=== PATIENT | female | born 1980 | race African-American/Black ===

== ENCOUNTER → 2017-02-01 | Outpatient (CLI) | payer OTHER ==
[~2017-02-01] MED LIST: FERR1TAB23 PO; IBUP-1450 PO; MOME100A INH; MULT1TAB22 PO; ULT50X PO
[2017-02-01 12:02] LABS: HEMATOCRIT 32.8 % (37-47); MEAN CELL VOLUME 93.7 fL (80-100); MEAN CORPUSCULAR HEMOGLOBIN 31.1 pg (25-34); MEAN CORPUSCULAR HGB CONC 33.2 g/dl (32-36); MEAN PLATELET VOLUME 9.8 fL (7.4-10.4); PLATELET COUNT 248 K/uL (130-400); WHITE BLOOD COUNT 4.22 K/uL (4.8-10.8)
[2017-02-01 12:12] LABS: PARTIAL THROMBOPLASTIN RATIO 1.1; PROTHROMBIN TIME (PATIENT) 10.3 SECONDS (9.0-12.0)
[2017-02-08 17:27] LABS: APTT 27 sec (22-34); F8 ACT 173 % (50-180); RISTOCETIN COFACTOR** 4459X 110 % (42-200)
== END | disposition home or self-care (01) ==
LOC: C.LAB 11:35
PROVIDERS: ATTEND Obstetrics & Gynecology
DX: N92.0 Excessive and frequent menstruation with regular cycle (principal)

== ENCOUNTER 2017-02-04 10:04 | Inpatient (IN) | payer OTHER ==
[~2017-02-04] VITALS: Ht 167.6 cm; Wt 46.4 kg
[~2017-02-04 10:04] MED LIST changes: -FERR1TAB23 PO; -IBUP-1450 PO; -MULT1TAB22 PO; -ULT50X PO
[2017-02-04 10:26] VITALS: BP 108/69; PULSE 66; TEMP 36.4; O2SAT 100; Ht 167.6 cm; Wt 46.4 kg
[2017-02-04] MEDS ORDERED: ONDANSETRON INJ 2 MG/ML 2 ML VIAL IV PRN (10:45)
[2017-02-04] MEDS ORDERED: ACETAMINOPHEN 325 MG TAB PO PRN (10:45)
--- NOTE | 2017-02-04 14:14 | Progress Note ---
Progress Note Date of Service February 04, 2017. Progress Note Pt. direct admitted with spontaneous right pneumothorax. As this is second occurrence, surgical bleb stapling recommended, and offered to patient for today. Pt. refused to undergo surgery or other treatments (chest tube, observation in hospital with oxygen). Dr. Mccray discussed possible consequences of no treatment which include but are not limited to worsening SOB or respiratory status, chest pain, tension pneumothorax resulting in syncope or . Despite the risks previously noted, she signed out AMA. Pt. informed that it was the medical opinion of Dr. Mccray she was not safe to drive (given the possible consequences noted above) and she expressed her understanding, even stating that her bull driver told her she should not drive. Given this fact, an appropriate Initial Reporting form was faxed to the [place] Department [employer] indicating that pt. should cease driving immediately. Pt. was notified that the above form was sent. The above was discussed with Risk Management Department.
--- NOTE | 2017-02-04 15:40 | HISTORY & PHYSICAL EXAMINATION ---
DATE OF ADMISSION: 02/04/2017 ADMISSION NOTE REASON FOR ADMISSION: Recurrent spontaneous right pneumothorax. HISTORY OF PRESENT ILLNESS: This is a 36-year-old female who has a history of a right spontaneous pneumothorax in 2012. She was evaluated by Dr. Luna as well as Dr. Agustín Montgomery in the past. She does have apical blebs bilaterally. The patient has an interesting history and she states that last July, she was flying on an airplane and her right-sided chest pain and shortness of breath became so severe she thought they may have to do an emergency landing. She did not seek medical attention and eventually over several days, these symptoms resolved. She had been told this was a possibility, especially with flying after she refused an apical bleb resection 4 years ago. The past week, the patient has had a cough which is nonproductive. She has had no fevers. The patient presented to Dr. Cornelius Casanova's office where she was found to have a large right pneumothorax and in fact had some symptoms of a tension pneumothorax. Vital signs are stable. Dr. Casanova called me in the office and asked if I would help in this case. I had her directly admitted to my service. I evaluated after her arrival. She is on room air with adequate saturations when I arrived. PAST MEDICAL HISTORY: 1. Recurrent spontaneous right pneumothoraces. 2. Allergic rhinitis. 3. Abnormal Pap smears. 4. HPV infections. 5. History of varicella. 6. Urinary tract infection. PAST SURGICAL HISTORY: 1. Tooth extractions. MEDICATIONS: 1. Dulera inhaler. 2. ProAir inhaler. ALLERGIES: No known drug allergies. 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 She is originally from [place]. She has never smoked cigarettes. She does have a boyfriend. She has never smoked. She did attend [employer]. FAMILY MEDICAL HISTORY: Significant for sickle cell trait, rheumatoid arthritis, SLE, diabetes mellitus and hypertension. REVIEW OF SYSTEMS: The patient is very thin. She denies weight loss. She denies any fevers or chills. She has had pain on right side of her chest. She states that she had a near syncopal episode, when she was in the shower. She states that she feels a bit better. She has had no GI or symptoms. She has no children. She has had no skin breakdown. She had no visual or auditory symptoms. PHYSICAL EXAMINATION: GENERAL: Very thin female, appears her stated age of 36. She is awake and alert. HEENT: Her extraocular movements are intact. Pupils are equal, round and reactive. Sclerae are anicteric. She has no nasolabial flattening. Teeth are in good repair. Tongue is midline. NECK: She has some neck vein distention at 90 degrees. She has no tracheal deviation. She has markedly decreased breath sounds on the right. She is very thin just over 100 pounds. She has no lymphadenopathy or carotid bruits. HEART: She has a regular rate and rhythm of her heart. LUNGS: She has clear breath sounds on the left. ABDOMEN: Soft, nontender. She has no surgical incisions. EXTREMITIES: She has no peripheral edema or joint effusions. She has excellent peripheral pulses. NEUROLOGIC: She is awake, alert and oriented. ASSESSMENT: Recurrent right pneumothorax which may be under some tension. PLAN: I have kept the patient n.p.o. and she has not eaten. I have offered her a thoracoscopic apical bleb resection. I spent a good deal of time with this patient and I explained to her that I am very concerned. She stated that she "had some things to do" and left. She signed out against medical advice. She did the same thing 4 years ago when she had a pneumothorax. I offered her a chest tube, she stated that she could not be admitted to the hospital at this time. Basically, the patient's main reason for not being admitted is she is "freaking out" over the thought of this surgery. Again, I offered her chest tube, she did not want that. She signed out against medical advice. She states that she has to "process this." I have explained to the patient that she could develop some major problems and in fact could with this pneumothorax. She states that she understands this. She also states that she did not think anything was going to happen to her because it did not happen in the past. She did want to know if she could come back later and have the surgery at a time of her choosing. At any rate, she did sign out against medical advice. BRAULIO
--- NOTE | 2017-02-12 13:08 | DISCHARGE SUMMARY ---
SUMMARY: The patient was admitted with a recurrent spontaneous pneumothorax as a direct admission to my service. She refused lab work. She refused admission and refused operative procedure to address this. She signed out against medical advice. For specifics, please refer to my history and physical.
[2017-02-13] MEDS ORDERED: FERR1TAB23 PO (09:56)
== END 2017-02-04 11:40 | disposition left against medical advice (07) | DRG 201 ==
LOC: C.MSW 10:14
PROVIDERS: ADMIT Surgery; ATTEND Surgery
DX: J93.83 Other pneumothorax (principal); Z83.2 Family history of diseases of the blood and blood-forming organs and certain disorders involving the immune mechanism; Z82.61 Family history of arthritis; Z83.3 Family history of diabetes mellitus; Z82.49 Family history of ischemic heart disease and other diseases of the circulatory system

== ENCOUNTER → 2017-02-04 | Outpatient (CLI) | payer OTHER ==
--- NOTE | 2017-02-04 09:23 | DIAGNOSTIC IMAGING REPORT ---
CHEST 2 VIEWS ROUTINE HISTORY: J93.9 [id number] SOB (shortness of breath)[id number] COMPARISON: Chest 04/27/2015. FINDINGS: Large right pneumothorax with a maximal pleural gap of 4.6 cm. Trace right pleural effusion. The left lung is clear. The heart is normal in size. There may be slight left mediastinal shift and hyperexpansion of the right lung. Therefore, this raises the possibility of a tension pneumothorax. IMPRESSION: Large right pneumothorax and a trace right pleural effusion. There is slight left mediastinal shift and hyperexpansion the right lung concerning for a tension pneumothorax. These findings were discussed with Dr. Casanova at 9:20 AM on 02/04/2017. Electronically signed by: Soham Park M.D. 02/04/2017 9:21 AM Dictated Date/Time: 02/04/2017 9:14 AM
== END | disposition home or self-care (01) ==
LOC: C.RAD1850 09:02
PROVIDERS: ATTEND Internal Medicine Pulmonary Disease
DX: J93.9 Pneumothorax, unspecified (principal); R06.02 Shortness of breath

== ENCOUNTER 2017-03-01 07:38 | Inpatient (IN) | payer OTHER ==
[2017-02-13 09:57] VITALS: BMI 16.0
[~2017-03-01] VITALS: Ht 167.6 cm; Wt 46.4 kg
[2017-03-01] VITALS (10 sets, daily range): BP systolic 93–114; BP diastolic 55–74; PULSE 50–84; TEMP 36.3–36.9; O2SAT 98–100; Ht 167.6 cm; Wt 46.4 kg
[~2017-03-01 07:38] MED LIST changes: +FERR1TAB23 PO; +LACTATED RINGER'S 1000ML 1,000 ML IV SCH
[2017-03-01] MEDS ORDERED: IBUP-1450 PO (08:07)
[2017-03-01] MEDS ORDERED: MULT1TAB22 PO (08:07)
[2017-03-01] MEDS ORDERED: NURSING VERBAL MED ORDER ONE (08:30)
[2017-03-01] MEDS ORDERED: LACTATED RINGER'S 1000ML 500 ML IV SCH (08:45)
[2017-03-01] MEDS ORDERED: FENTANYL CITRATE INJ 50 MCG/1 ML 2 ML VIAL ONE ×2 (08:48→11:26)
[2017-03-01] MEDS ORDERED: DEXAMETHASONE SOD INJ 4 MG/ML VIAL ONE (08:48)
[2017-03-01] MEDS ORDERED: NEOSTIGMINE METHYLSULFATE 5 MG/5 ML SYR ONE (08:48)
[2017-03-01] MEDS ORDERED: PROPOFOL IV EMULSION 10 MG/ML 20 ML VIAL IV ONE (08:48)
[2017-03-01] MEDS ORDERED: ONDANSETRON INJ 2 MG/ML 2 ML VIAL ONE (08:48)
[2017-03-01] MEDS ORDERED: ROCURONIUM BROMIDE 10 MG/ML 5 ML VIAL ONE (08:48)
[2017-03-01] MEDS ORDERED: LIDOCAINE HCL 2% 2 ML VIAL (20MG/ML) ONE (08:48)
[2017-03-01] MEDS ORDERED: MIDAZOLAM HCL 1 MG/ML 2ML VIAL ONE ×2 (08:48→11:31)
[2017-03-01] MEDS ORDERED: GLYCOPYRROLATE INJ 0.2 MG/ML VIAL ONE ×2 (08:48→10:46)
--- NOTE | 2017-03-01 09:17 | History & Physical Bridge Note ---
H&P Re-Evaluation Bridge Note: I have examined the patient, reviewed the History & Physical and in the interval since the performance of the History & Physical I have noted the following changes of clinical significance: No changes noted
--- NOTE | 2017-03-01 09:23 | History and Physical ---
History & Physical Date Mar 01, 2017. Chief Complaint Collapsed lung twice History of Present Illness The patient is a 36 year old female with complaints of at least two right spontaneous pneumothoraces. Past Medical/Surgical History Medical Problems: (1) No pertinent past medical history Additional History Hepatic Disease: No Endocrine Disorder: No Kidney Disease: No Hypertension: No Heart Disease: No Bleeding Tendencies: No Infectious Diseases: No Allergies Coded Allergies: No Known Allergies (Unverified , 03/01/17) Home Medications Scheduled Multiple Vitamins W/ Minerals (One Daily For Women), 1 TAB PO DAILY Scheduled PRN Ibuprofen (Motrin), 600 MG PO Q6H PRN for Pain Mometasone Furoate-Formoterol (Dulera 100/5 Mcg), 2 PUFFS INH Q4H PRN for SOB/ Wheezing Physical Examination Skin: warm/dry, no rash Eyes: normal inspection, EOMI, sclerae normal ENT: normal ENT inspection, pharynx normal Head: normocephalic, atraumatic Neck: supple, no adenopathy, trachea midline Respiratory/Chest: lungs clear, normal breath sounds, no respiratory distress Cardiovascular: regular rate, rhythm, no edema, no murmur Abdomen / GI: normal bowel sounds, non tender Back: normal inspection Neurologic/Psych: no motor/sensory deficits, alert, normal reflexes, oriented x 3 Diagnosis Recurrent right spontaneous pneumothorax Plan of Treatment Right thoracoscopic bleb resection
[2017-03-01] MEDS ORDERED: BUPIVACAINE LIPOSOME 1/3% 266 MG/20 ML VIAL INFIL ONE (10:01)
[2017-03-01] MEDS ORDERED: SODIUM CHLORIDE 0.9% PF 50 ML VIAL ONE (10:01)
[2017-03-01] MEDS ORDERED: CEFAZOLIN SOD 1 GM VIAL ONE (10:30)
[2017-03-01] MEDS ORDERED: HYDROmorphone INJ 2 MG/ML SYR/VIAL ONE (10:51)
[2017-03-01] MEDS ORDERED: OXYCODONE HCL IR 5 MG TAB (IMMEDIATE RELEASE) PO PRN (11:15)
[2017-03-01] MEDS ORDERED: MoRPHine SULFATE 2 MG/ML CARP IV PRN ×2 (11:15→13:15)
[2017-03-01] MEDS ORDERED: ONDANSETRON INJ 2 MG/ML 2 ML VIAL IV PRN ×2 (11:15→11:30)
[2017-03-01] MEDS ORDERED: PROMETHAZINE HCL INJ 12.5 MG in SODIUM CHLORIDE 0.9% 50ML 50 ML IV PRN (11:30)
[2017-03-01] MEDS ORDERED: HYDROmorphone INJ 1 MG/ML SYR IV PRN (11:30)
[2017-03-01] MEDS ORDERED: FLUMAZENIL 0.1 MG/1 ML 10 ML VIAL IV PRN (11:30)
[2017-03-01] MEDS ORDERED: EpHEDrine SULFATE INJ 50 MG/ML AMP IV PRN (11:30)
[2017-03-01] MEDS ORDERED: ATROPINE SULFATE 0.1 MG/ML 5ML SYR IV PRN (11:30)
[2017-03-01] MEDS ORDERED: NALOXONE HCL 0.4 MG/1 ML VIAL/CARP IV PRN (11:30)
--- NOTE | 2017-03-01 12:07 | DIAGNOSTIC IMAGING REPORT ---
CHEST ONE VIEW PORTABLE CLINICAL HISTORY: s/p bleb stapling postoperative change COMPARISON STUDY: 02/04/2017 FINDINGS: Right-sided chest tube in good position. Small residual right apical pneumothorax. Maximum pleural separation 1.5 cm. Persistent prominence of the parenchymal markings in the lung bases. IMPRESSION: Small residual right apical pneumothorax with an estimated pleural separation of 1.5 cm. Electronically signed by: Valdez Sharma M.D. 03/01/2017 12:06 PM Dictated Date/Time: 03/01/2017 12:04 PM
--- NOTE | 2017-03-01 12:28 | Anesthesiology Progress Note ---
Anesthesia Post Op Note Date & Time Mar 01, 2017 at 12:28 Vital Signs Pain Intensity: 0 Vital Signs Past 12 Hours Date Time Temp Pulse Resp B/P (MAP) Pulse Ox O2 Delivery O2 Flow Rate FiO2 03/01/17 12:10 60 16 106/61 100 Oxymask 5 03/01/17 12:00 65 16 113/71 100 Oxymask 10 03/01/17 11:50 75 16 94/56 100 Oxymask 10 03/01/17 11:40 71 12 97/50 100 Oxymask 10 03/01/17 11:33 36.7 82 12 114/49 100 Oxymask 10 03/01/17 08:28 36.9 03/01/17 08:07 84 18 107/65 100 Room Air Notes Mental Status: alert / awake / arousable, participated in evaluation Pt Amnestic to Procedure: Yes Nausea / Vomiting: adequately controlled Pain: adequately controlled Airway Patency, RR, SpO2: stable & adequate BP & HR: stable & adequate Hydration State: stable & adequate Anesthetic Complications: no major complications apparent
[2017-03-01] MEDS: D5W AND 1/2NSS 1,000 ML IV SCH ×2 (13:30→22:40)
--- NOTE | 2017-03-01 14:08 | OPERATIVE REPORT ---
DATE OF OPERATION: 03/01/2017 PREOPERATIVE DIAGNOSIS: Recurrent right spontaneous pneumothorax. POSTOPERATIVE DIAGNOSIS: Same. PROCEDURES: 1. Right thoracoscopy with apical bleb resection. 2. Limited pleurectomy, right upper pleural cavity. SURGEON: Dr. Mccray. AQUATIC LIFE LABORER: NUHA Jones. ANESTHESIA: General anesthesia with single lumen intubation. 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 She was seen to have some small blebs at the apex of her right lung. She is a nonsmoker. We had a long talk about this and elected to proceed with apical bleb resection. She had some anxieties about this case and pushed it off quite a bit. We finally simply scheduled the case and she came in with her today and had a straightforward right thoracoscopy. We did staple off the blebs. We saw no blebs anywhere else and she had no air leak at the conclusion of the case. I did do a limited pleurectomy of the cupula of the right chest cavity. She tolerated it well. We left a 16-Sinhala chest tube in place. PROCEDURE IN DETAIL: The patient was brought to the operating room and laid in supine position. General anesthesia induced and an endotracheal intubation was performed with a single lumen tube. The patient was placed in left lateral decubitus position. After appropriate timeout had been called and she had been prepped and draped in the usual sterile fashion and given prophylactic antibiotics, the patient was hand ventilated very lightly. A 5 mm port was placed just below the tip of the scapula and carbon dioxide was infused. A 5 mm scope was placed. We could see that there were no adhesions. She had good fissures. I closely inspected the superior segment of the right lower lobe and really did not see any evidence of blebs. She did have evidence of bleb in the apex, although it was more scarring. I then made another 5 mm incision with the port at about fourth interspace anterior to the latissimus dorsi muscle. Then about the seventh interspace, we made a 12 mm port for our stapler. This area was grasped at the apex and the Endo-JEANETTE stapler was fired 3 times to remove a generous portion of the right upper lobe. This was taken out in a specimen bag. We then used 266 mg of Exparel and 60 mL of normal saline and blocked from the 2nd to the 11th rib. This intercostal block was done by injecting over the top of the rib intrathoracically under thoracoscopic guidance. Attention was then turned towards the cupula and the pleura was grasped and incised at about the 4th rib and then we removed it, going all the way up to the apex by grasping the edge of the cut pleura with a grasper and then using a Kitner cotton tipped dissector to remove the rest of this. This was delivered off the field. The patient then had a 16-Sinhala chest tube placed in the anterior thoracoscopy port and directed towards the apex. We did not see an air leak. This was sutured in place with heavy silk suture. A 4-0 Monocryl was used to close all the incisions. She tolerated it well. I attest to the content of the Intraoperative Record and any orders documented therein. Any exception s are noted below.
[2017-03-01 14:23] LABS: MEAN CELL VOLUME 92.2 fL (80-100); MEAN CORPUSCULAR HEMOGLOBIN 30.2 pg (25-34); MEAN CORPUSCULAR HGB CONC 32.7 g/dl (32-36); MEAN PLATELET VOLUME 10.3 fL (7.4-10.4); PLATELET COUNT 204 K/uL (130-400); RED BLOOD COUNT 3.58 M/uL (4.2-5.4); WHITE BLOOD COUNT 6.87 K/uL (4.8-10.8)
[2017-03-01 14:29] LABS: PROTHROMBIN TIME (PATIENT) 10.7 SECONDS (9.0-12.0)
[2017-03-01 14:43] LABS: CREATININE 0.68 mg/dl (0.60-1.20)
[2017-03-01] MEDS: KETOROLAC TROMETHAMINE 15 MG/ML VIAL IV. SCH (16:26)
[2017-03-01] MEDS: ACETAMINOPHEN IV 650 MG in EMPTY BAG 0 ML IV SCH (16:26)
[2017-03-01] MEDS: CEFAZOLIN IV 2,000 MG in DEXTROSE 5% 50ML 50 ML IV SCH (18:53)
[2017-03-01] MEDS ORDERED: CEFAZOLIN IV 2,000 MG in DEXTROSE 5% 50ML 100 ML IV SCH (20:00)
[2017-03-01] MEDS: DOCUSATE SODIUM 100 MG CAP PO SCH (21:00)
[2017-03-01] MEDS: METOCLOPRAMIDE HCL INJ 5 MG/ML 2 ML VIAL IV. SCH (21:06)
[2017-03-02] MEDS: KETOROLAC TROMETHAMINE 15 MG/ML VIAL IV. SCH ×2 (00:08→07:57)
[2017-03-02] MEDS: ACETAMINOPHEN IV 650 MG in EMPTY BAG 0 ML IV SCH ×2 (00:08→08:00)
[2017-03-02] MEDS: CEFAZOLIN IV 2,000 MG in DEXTROSE 5% 50ML 50 ML IV SCH (02:06)
[2017-03-02 03:20] VITALS: BP 100/60; PULSE 74; TEMP 36.8; O2SAT 98
[2017-03-02] MEDS: METOCLOPRAMIDE HCL INJ 5 MG/ML 2 ML VIAL IV. SCH (05:57)
[2017-03-02 06:25] VITALS: O2SAT 96
[2017-03-02 07:06] VITALS: BP 95/62; PULSE 76; TEMP 36.9; O2SAT 98
--- NOTE | 2017-03-02 07:30 | DIAGNOSTIC IMAGING REPORT ---
CHEST ONE VIEW PORTABLE CLINICAL HISTORY: s/p bleb stapling postoperative evaluation COMPARISON STUDY: 03/01/2017. FINDINGS: Small right apical pneumothorax moderately diminished in size from the prior study. Maximum pleural separation is 11 mm. The right-sided chest tube has been pulled back several centimeters. Lungs otherwise are clear. IMPRESSION: Improved exam. Very small residual right apical pneumothorax with a pleural separation 11 mm. Lungs otherwise appear clear. Electronically signed by: Valdez Sharma M.D. 03/02/2017 7:28 AM Dictated Date/Time: 03/02/2017 7:27 AM
[2017-03-02] MEDS: DOCUSATE SODIUM 100 MG CAP PO SCH (08:24)
[2017-03-02] MEDS: D5W AND 1/2NSS 1,000 ML IV SCH (08:31)
[2017-03-02] MEDS ORDERED: CEROVITE ADV FORMULA TAB PO SCH (09:00)
[2017-03-02] MEDS ORDERED: ENOXAPARIN 30 MG/0.3 ML SYR SQ SCH (09:00)
[2017-03-02] MEDS ORDERED: ULT50X PO (09:41)
--- NOTE | 2017-03-02 09:45 | DIAGNOSTIC IMAGING REPORT ---
CHEST ONE VIEW PORTABLE CLINICAL HISTORY: s/p chest tube removal tube removal COMPARISON STUDY: 03/02/2017 FINDINGS: Interval removal of the right-sided chest tube. Small residual right apical pneumothorax unchanged. Lungs otherwise remain clear. IMPRESSION: Interval removal of the right-sided chest tube. Unchanged tiny right apical pneumothorax. Electronically signed by: Valdez Sharma M.D. 03/02/2017 9:44 AM Dictated Date/Time: 03/02/2017 9:43 AM
--- NOTE | 2017-03-02 09:45 | Discharge Instructions ---
Discharge Instructions Date of Service Mar 02, 2017. Admission Reason for Admission: PneumothoraxPt Is To Sign Financial Waiver Discharge Discharge Diagnosis / Problem: spontaneous pneumothorax Discharge Goals Goal(s): Decrease discomfort Activity Recommendations Activity Limitations: as noted below Exercise/Sports Limitations: rest today, gradually increase as tolerated, until after follow-up appointment May Resume Sexual Activity: when tolerated Shower/Bathe: may shower/bathe in 3 days . Instructions / Follow-Up Instructions / Follow-Up Remove all dressings and shower in [address] until you see me in office. Current Hospital Diet Patient's current hospital diet: Regular Diet Discharge Diet Recommended Diet: Regular Diet Procedures Procedures Performed: Right Video Assisted Thoracoscopy with Bleb Stapling Pending Studies Studies pending at discharge: yes List of pending studies: Pathology Medical Emergencies Call the hospital and pagr Dr Mccray with any . Who to Call and When: Medical Emergencies: If at any time you feel your situation is an emergency, please call 911 immediately. . Non-Emergent Contact Non-Emergency issues call your: Surgeon (Call the hospital and page Dr Mccray with any problems. My office will call you and schedule appointment for next week.) . "Provider Documentation" section prepared by Cornelius Mccray. . VTE Core Measure Inpt VTE Proph given/why not?: Enoxaparin (Lovenox)SQ, SCD's
[2017-03-02 10:38] VITALS: BP 95/62; PULSE 76; TEMP 36.9; O2SAT 98
--- NOTE | 2017-03-02 10:51 | DISCHARGE SUMMARY ---
DATE OF DISCHARGE: 03/02/2017. DISCHARGE DIAGNOSES: Recurrent spontaneous right pneumothoraces. 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 She presented with a large pneumothorax, refused admission and refused a chest tube. This was a few weeks ago. She went home and talked to her significant other and they had multiple discussions and called the office stating that she would like to schedule the thoracoscopic apical bleb resection. On 03/01/2017 the patient was brought to the operating room and underwent uncomplicated thoracoscopic resection of apical blebs and limited pleurectomy of her upper right pleural cavity. I did see some scarring and some blebs in her right upper lobe. She tolerated this well. She had no air leak with full expansion of the lung after the surgery. The following morning I removed her chest tube, her x-ray looked quite good. She tolerated this very well. She did not do well with Reglan as it made her very confused and we stopped that. Her pain was well controlled. I did give her tramadol to go home with. I will see her back in the office in a week.
== END 2017-03-02 11:46 | disposition home or self-care (01) | DRG 165 ==
LOC: C.ACU 07:38 → C.MSN 11:14 → ENRESERV 12:16
PROVIDERS: ADMIT Surgery; ATTEND Surgery
PROC: 0BBN4ZZ Excision of Right Pleura, Percutaneous Endoscopic Approach (ICD-10-PCS; principal; 2017-03-01 09:25)
PROC: 0BBC4ZZ Excision of Right Upper Lung Lobe, Percutaneous Endoscopic Approach (ICD-10-PCS; principal; 2017-03-01 09:25)
DX: J93.83 Other pneumothorax (principal)

== ENCOUNTER → 2017-03-12 | Outpatient (CLI) | payer OTHER ==
[~2017-03-12] MED LIST changes: -FERR1TAB23 PO; +IBUP-1450 PO; -LACTATED RINGER'S 1000ML 1,000 ML IV SCH; +MULT1TAB22 PO; +ULT50X PO
--- NOTE | 2017-03-12 13:40 | DIAGNOSTIC IMAGING REPORT ---
CHEST 2 VIEWS ROUTINE HISTORY: Follow-up pneumothorax. COMPARISON: Chest 03/02/2017. FINDINGS: There is again noted suture material within the right lung apex. The right-sided pneumothorax has essentially resolved in the interval. The lungs are clear. The heart is normal in size. IMPRESSION: Postoperative changes within the right lung apex. The right-sided pneumothorax has essentially resolved. Electronically signed by: Soham Park M.D. 03/12/2017 1:39 PM Dictated Date/Time: 03/12/2017 1:35 PM
== END | disposition home or self-care (01) ==
LOC: C.RAD 13:15
PROVIDERS: ATTEND Surgery
DX: J93.9 Pneumothorax, unspecified (principal)

== ENCOUNTER → 2018-01-29 | Outpatient (CLI) | payer OTHER | END | disposition home or self-care (01) | LOC: C.PAPS 13:59 | PROVIDERS: ATTEND Obstetrics & Gynecology | DX: N87.0 Mild cervical dysplasia (principal); R87.610 Atypical squamous cells of undetermined significance on cytologic smear of cervix (ASC-US) ==

== ENCOUNTER 2024-09-08 21:53 | Observation (INO) ==
--- OUTSIDE RECORDS SUMMARY | 2024-09-08 21:59 | External Medical Summary | Continuity of Care Document ---
Author Name Unknown Organization [facility] Address [address] [place] [phone] Care Team Providers Care Music Director Name Role Phone Pro Negro Viet Primary Care Physician [phone] [id number] Date[facility]s): 07/14/24 - 07/14/[address] [phone] Encounter Diagnosis Liver disease, unspecified(Final) - Discharge Disposition: Home or Self Care Attending Physician: MD Angelita, Wesley Crespo Referring Physician: MD Angelita, Wesley Crespo Allergies, Adverse Reactions, Alerts Substance Criticality Severity Reaction Reaction Severity Status Reglan anxiety, halluc inations, closterphobia Active Functional Status 07/14/24 History of Fall in Last 3 Months Higgins N o Presence of Secondary Diagnosis Higgins No Use of Ambulatory Aid Higgins None/bedrest /nurse assist IV/Heparin Lock Fall Risk Higgins No Gait/Transferring Fall Risk Higgins Normal /bedrest/immobile Mental Status Fall Risk Higgins Oriented t o own ability Higgins Fall Risk Score 0 Higgins Fall Risk No Risk Immunizations Given and Recorded Vaccine Date Status Refusal Reason SARS-CoV-2 (COVID-19) mRNA-vacc - [id number] 10/10/23 Recorded tetanus/diphtheria/pertuss, acel (Tdap) 01/31/23 R ecorded tetanus/diphtheria/pertuss, acel (Tdap) 01/14/13 R ecorded SARS-CoV-2 mRNA (Pfizer 12+) bivalent 11/05/22 Rec orded Medications multivitamin Start: 06/04/24 2:49:00 PM EDT, 1 tab, PO, Daily Start Date: 06/04/24 Status: Ordered norethindrone 5 mg oral tablet Start: 06/18/24 8:17:00 AM EDT, 1 tab, PO, Daily, Disp# 30 tab, Refills: 5, Pharmacy: [id number] Start Date: 06/18/24 Status: Ordered Problem List Condition Confirmation Course Effective Dates Status H ealth Status Informant Anemia Confirmed Active ALEXA positive Confirmed Active Catamenial pneumothorax Confirmed Active Endometriosis Confirmed Active H/O vitamin D deficiency Confirmed Active Lesion of liver Confirmed Active Results Laboratory List Name Date Urine HCG Nurse POC (HCG, Urine Nurse PO C) 07/14/24 Complete Blood Count (CBC w Platelets) 1 Partial Thromboplastin Time (PTT) Prothrombin Time w/ INR (PT/INR) 4 Most recent to oldest [Reference Range]: 1 Beta HCG Ref Range [negative] (07/14/24 2:53 PM) Beta hCG Ql Negative 1 (07/14/24 2:53 PM) MPV [9.0-12.2 fL] 11.0 fL (07/14/24 1:49 PM) RDW [11.5-14.2 %] 12.7 % (07/14/24 1:49 PM) Hct [35-44 %] 36.9 % (07/14/24 1:49 PM) Hgb [11.7-15.0 g/dL] 12.2 g/dL (07/14/24 1:49 PM) INR [0.9-1.1] 1.0 2 (07/14/24 1:49 PM) MCH [28-33 pg] 31.2 pg (07/14/24 1:49 PM) MCHC [32-36 g/dL] 33.1 g/dL (07/14/24 1:49 PM) MCV [81-96 fL] 94.4 fL (07/14/24 1:49 PM) Plts [150-350 K/uL] 294 K/uL (07/14/24 1:49 PM) PT [12.0-14.2 seconds] 13.5 seconds (07/14/24 1:49 PM) PTT [23-35 seconds] 28 seconds (07/14/24 1:49 PM) RBC [3.90-5.00 M/uL] 3.91 M/uL (07/14/24 1:49 PM) WBC [4.0-10.4 K/uL] 4.25 K/uL (07/14/24 1:49 PM) 1Result Comment: Performed at: [address] [place], [place] [address] 2Result Comment: Suggested therapeutic range for low-intensity Coumadin therapy for venous thromboembolism is INR 2.0-3.0 (ex: atrial fibrillation, history of TIA/stroke). For high risk patients, the suggested therapeutic range is INR 2.5-3.5 (ex: mechanical prosthetic valves). Radiology Reports * Exam Date Time Procedure Performing Provider Status 07/14/24 3:[address] Biopsy Liver Behrent, Davina; F inal Notes: (PS CT Biopsy Liver) Reason For Exam: Liver lesion biopsy. seg 8 4.1x3.9cm, send for beta catenin too. 43F. Angelita. PS CT Biopsy Liver EXAMINATION: PS: CT-GUIDED BIOPSY OF RIGHT LIVER LESION CLINICAL HISTORY: K76.9: Liver disease, unspecified; Liver lesion biopsy. seg 8 4.1x3.9cm, send for beta catenin too. 43F. Angelita. COMPARISON: MRI abdomen 06/04/2024 INTRA-PROCEDURAL MEDICATIONS: Sedation 1:Versed Sedation Volume 1:1 mg Sedation 2:Fentanyl Sedation Volume 2:50 mcg SEDATION: Patient's vital signs were monitored by nursing. Sedation Total Time:10 minutes TECHNIQUE: Attending radiologist: Dr. Christie Fellow radiologist: Dr. Edouard The risks, benefits, alternatives to the procedure and sedation were discussed with the patient allof the patient's questions answered. Written consent was obtained. The patient was placed in the supine position on the scanner table. A suitable site for entry was selected following Limited CT evaluation of the liver and marked. The patient's identity and site of biopsy were confirmed at a time out. The skin was prepped and draped in the usual sterile fashion. Local anesthesia was achieved with 1%lidocaine. A small dermatotomy was performed. Under CT guidance, a 17-gauge introducer needle was advanced to the right liver lesion in segment 8. 3 core biopsies were obtained with an 18 gauge [place] biopsy system. Hemostasis was obtained and a sterile dressing was applied. The patient tolerated the procedure well. COMPLICATIONS: Related to the procedure: None Related to sedation: none Required intervention: none Dose: Total Reported Dose Length Product (DLP) = 81.30 mGy.cm IMPRESSION: CT-guided right liver lesion biopsy. Dr. Christie performed/was present for the entire procedure. Dr. Edouard as the dictating radiologist fellow. The Interpreting radiology attending was physically present with the dictating radiology fellow during the bedolla portions of this procedure, which includes all substantive procedural and decision making portions. The interpreting radiology attending reviewed the images and discussed interpretation with the dictating radiologist trainee. ATTENDING PHYSICIAN ATTESTATION: I was physically present in the room and supervised the performance of the procedure. Workstation ID: [id number] Final Dictated by:DO Edouard Rushi Dictated DT/TM:07/14/2024 4:12 Resident:DO Edouard Rushi Signed by:MD Christie James A Signed (Electronic Signature):07/14/2024 4:11 p Anatomic Pathology Reports * Report Case Number Specimen Responsible Pathologist Report Status Surgical Pathology Report [id number] MD Joy Guoli; Final * Event Display: SP Gross 1. Received in formalin, labeled with the patients name, medical record number and `` liver lesion, are four cores of schulz tissue measuring 0.1 cm in diameter, and 0.5 up to 1.8 cm in length. Entirely submitted in a tissue processing bag. Block Summary: 1A (SCW) MD Joy Guoli:VERIFY; Authored Date: * Event Display: SP Clinical History Pre-operative diagnosis: Liver lesion. Liver lesion, history of catamenial PTX, endometriosis. Sendfor beta catenin. Post-operative diagnosis: _ Signs and symptoms: _ _ Time out of body: _ Time in fixative: _ Special instructions: Send for beta catenin. MD Joy Guoli:VERIFY; Authored Date: * Event Display: SP Micro The liver biopsy shows multiple cores of liver tissue with sinusoidal dilatation. Occasional venular structures are noted, but no definitive portal tracts are identified. No significant hepatocellular atypia is identified. A reticulin stain is retained. The specimen is sent out for beta catenin immu nohistochemistry and the result will be reported separately. MD Joy Guoli:VERIFY; Authored Date: [id number] * Event Display: SP Dx 1. 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 Darrin Joy MD (Electronically signed by) Verified: 07/16/2024 13:47 EDT Performing Location: [facility] MD Joy Guoli:VERIFY; Authored Date: [id number] * Event Display: SP Disclaimer performs the technical component for work verified at [facility]([address] [place] [address]; CLIA [id number]), ([address], [place] [address]; CLIA [id number]), and [facility] ([address] [address]; CLIA [id number]). [facility] performs the technical component for work verified at [facility] ([address], [address], [place] [address]; CLIA [id number]) and [facility] ([address] [place] [address], [place] [address]; CLIA [id number]). All laboratories are under the Clinical Laboratory Improvement Amendments of 1988 (CLIA-88) as qualified to perform high complexity clinical laboratory testing. The following statement applies to flow cytometry, immunohistochemical, histochemical, molecular genetics, immunofluorescence, and in situ hybridization assays. These tests were developed and their performance characteristics determined by a [facility] Department of Pathology Laboratory. All controls show appropriate reactivity. Not all tests have been cleared or approved by the U.S. Food and Drug Administration. The FDA has determined that such clearance or approval is not necessary. For decalcified specimen types, focused validation may have been done that may or may not apply to all decalcified specimen types. Results should be interpreted with caution. MD Joy Guoli:VERIFY; Authored Date: [id number] Vital Signs Most recent to oldest [Reference Range]: 1 2 3 Temperature [36.5-37.9 DegC] 37.4 DegC (07/14/24 2:11 PM) Heart Rate 72 bpm (07/14/24 5:30 PM) 69 bpm (07/14/24 5:15 PM) 65 bpm (07/14/24 5:00 PM) Respiratory Rate 15 br/min (07/14/24 5:30 PM) 14 br/min (07/14/24 5:15 PM) 14 br/min (07/14/24 5:00 PM) Blood Pressure 105/72mmHg (07/14/24 5:30 PM) 106/75mmHg (07/14/24 5:15 PM) 111/81mmHg (07/14/24 5:00 PM) Mean Blood Pressure 82 mmHg (07/14/24 5:30 PM) 86 mmHg (07/14/24 5:15 PM) 91 mmHg (07/14/24 5:00 PM) Cuff Pulse Pressure 33 mmHg (07/14/24 5:30 PM) 31 mmHg (07/14/24 5:15 PM) 30 mmHg (07/14/24 5:00 PM) Social History Social History Type Response Smoking Status Never smoked cigaret alton Sex Female Sex Representation Female (finding) Implantable Device List Procedure Provider Procedure Date Device Type Site Unknown Unknown 08/06/23 Unknown Unknown Device Identifier Serial Number Lot or Batch Number Manufacturing Date Expiration Date Distinct Identification Code MRI Safety Implantable Status Assigning Authority Unknown Unknown n/a Unknown 02/04/28 Unknown Unknown Active Unkn own Radiology H&P * KYLE Braxton, Kevin D: PERFORM Event Display: Radiology H&P Authored Date: [id number] RADIOLOGY HISTORY AND PHYSICAL - SEDATION Name: SHIRA RODRÍGUEZ Patient Number: [id number] : 1980 Date of Service: 07/14/2024 PLANNED PROCEDURE: Image guided liver lesion biopsy Chief Complaint: Liver lesion History of Present Illness: 44-year-old female presents for image guided liver lesion biopsy. Past Medical History: Problems: Endometriosis Catamenial pneumothorax Lesion of liver H/O vitamin D deficiency Anemia ALEXA positive Surgical History: Procedure History Procedure Procedure Date Comments None Anesthetic History: Prior difficulty: x Yes _ No If yes, provider details: Vomiting Allergies and Sensitivities: Reglan(anxiety, hallucinations, closterphobia) Current Home Meds: (Last Updated 07/07 16:57) multivitamin 1 tab PO Daily norethindrone (norethindrone 5 mg oral tablet) 5 mg PO Daily No Vital Signs Data Available Initial Wt: No Data Available Physical Exam: _ Level of Consciousness/Mental Status: Awake: x Yes _ No Alert: x Yes _ No Oriented: x Yes _ No Mental Status: If No, Comment _ Airway: Indicate class, A high score (class 3 or 4) is a predictor of a more difficult intubation. The Mallampati Score _ Class 1: Complete visualization of the soft palate _ Class 2: Complete visualization of the uvula _ Class 3: Visualization of only the base of the uvula x Class 4: Soft palate is not visible at all Lungs: x Clear _ Rales _ Rhonchi _ Wheeze Heart: x Normal Sinus Rhythm _ Murmur _ Arrhythmia _ List: _ [place] Society of Anesthesia Classification: _ I. Normal healthy patient x II. Patient with mild systemic disease _ III. Severe systemic disease _ IV. Severe systemic disease which is threat to life _ V. Moribund, not expected to survive without procedure Sedation Plan: x Moderate _ Reschedule with Anesthesia 30 Day Labs: No 30 Day Lab Data. Assessment: 44-year-old female presents for image guided liver lesion biopsy. Plan: Proceed with image guided liver lesion biopsy. Electronic Signature on File Electronically Reviewed/Signed by: Kevin Braxton PA-C Author Signature Dt/Tm:07/14/2024 01:58 PM Department of Radiology Electronically Reviewed/Signed by: Luis Christie MD Cosigner Signature Dt/Tm: 07/14/2024 04:12 PM Division of Diagnostic Radiology MDS Patient Care team information Care Team Personnel Name: Orion Kumar Keri Position: Pharmacist Member Role: Pharmacy - Lifetime Name: Orion Sanchez Christine A Position: Pharmacist Member Role: Pharmacy - Lifetime Name: Orion Morse Erika Joy Position: Pharmacist Member Role: Pharmacy - Lifetime Name: MD Briscoe Jeffrey W Position: Referring DIRECT Member Role: Primary Care Provider Address: [facility] [address] Name: Orion Elias Brittani Position: Pharmacist Member Role: Pharmacy - Lifetime Care Team Related Persons Name: KELSEY ARRIAGA Name: RICKEY KHALIL
[2024-09-08 22:36] LABS: Basophils # (auto) 0.03 K/uL (0.00-0.20); Basophils % (auto) 0.5 %; Eosinophils # (auto) 0.06 K/uL (0.00-0.50); Hematocrit (blood only) 37.5 % (37.0-47.0); Hemoglobin 12.5 g/dl (12.0-16.0); Immature Granulocytes # (auto) 0.01 K/uL (0.01-0.20); Immature Granulocytes % (auto) 0.2 %; Lymphocytes # (auto) 2.64 K/uL (1.20-3.40); Mean Corpuscular Hemoglobin 30.9 pg (25.0-34.0); Mean Corpuscular Hgb Conc 33.3 g/dL (32.0-36.0); Mean Corpuscular Volume 92.6 fL (80.0-100.0); Mean Platelet Volume 9.8 fL (9.4-12.4); Monocytes # (auto) 0.29 K/uL (0.11-0.59); Monocytes % (auto) 4.9 %; Neutrophils # (auto) 2.84 K/uL (1.40-6.50); Neutrophils % (auto) 48.4 %; Platelet Count 289 K/uL (130-400); RDW Coefficient of Variation 12.8 % (11.5-14.5); RDW Standard Deviation 43.9 fL (36.4-46.3); Red Blood Count 4.05 M/uL (4.20-5.40); White Blood Count 5.87 K/ul (4.8-10.8)
[2024-09-08 22:47] LABS: Albumin Globulin Ratio 1.5 (0.9-2); Albumin Level 4.6 gm/dl (3.4-5.0); BUN Creatinine Ratio 12.6 (10-20); Bilirubin,Total 0.8 mg/dl (0.2-1.0); Calcium 8.8 mg/dl (8.6-10.3); Creatinine Clr Calc Pharmacy 74.9 ml/min; Globulin 3.1 gm/dl (2.5-4.0); Potassium 3.8 mmol/L (3.5-5.1); Total Protein 7.7 gm/dl (6.0-8.3)
[2024-09-08 22:53] LABS: Troponin I High Sensitivity 3.8 pg/ml (0-14)
--- NOTE | 2024-09-08 23:34 | Emergency Department Note ---
Impression & Plan Pneumothorax on right ED Provider Note NAME: SHIRA RODRÍGUEZ AGE: 44 SEX: F : 1980 ARRIVES VIA: Walk-In INFORMANT: Patient, ED PROVIDER(S): Elisa Lora MD CHIEF COMPLAINT: Chest pain HPI: This is a 44-year-old female presenting for chest pain. Patient states her symptoms started on Saturday, 2 days ago. She has history of 2 previous pneumothoraces which appeared similarly. She notes the pain is same with chest/back pain going to the right-sided scapula. She had previous VATS procedure in 2017. She then had a diaphragmatic mesh placed at [facility]. She then had further procedures including ablation. She had exploratory laparoscopy by MARINE FIREMAN at [facility] about 1 year ago as there thought that this is related to endometriosis. She is currently on hormone therapy different periods. ROS: See above HPI for pertinent positives & negatives. A total of 10 systems reviewed and were otherwise negative. PAST MEDICAL HISTORY: See Below PAST SURGICAL HISTORY: See Below FAMILY HISTORY: See Below SOCIAL HISTORY: See Below HOME MEDICATIONS: See Below ALLERGIES: See Below VITALS: See Below PHYSICAL EXAMINATION: General: resting comfortably in no acute distress Head: Normocephalic and atraumatic Eyes: Normal inspection, extraocular muscles intact Ear, nose, throat: Normal external exam Neck: Normal range of motion Respiratory: lungs clear to auscultation bilaterally Cardiovascular: Regular rate/rhythm, no murmur GI: soft, nontender, no guarding or rebound Extremities: nontender, moves all extremities Neuro: The patient awake and alert, appropriately conversive, no focal deficits, symmetric faces Skin: Warm, dry, and intact MEDICAL DECISION MAKING: This is a 44-year-old female presenting for chest pain. -X-ray as Independently interpreted by me does reveal a right-sided pneumothorax, mild to moderate in size. No mediastinal shift. No focal opacity. -Discussed care with Dr. Elmore, recommends discussion with [facility] as she has had previous procedures done. -Discussed care with Dr. Nieves, cardiothoracic surgery who has been told the history, current presentation, size of the pneumothorax. She looked at the patient's chart at [facility] and saw the multiple procedures done. She does not recommend transfer at this time as she would likely only need chest tube, monitoring and discharge. She does encourage outpatient follow-up for multidisciplinary plan including cardiothoracic involvement, with joint involvement and possible hysterectomy. -Discussed care with Dr. Elmore again, some picture of x-ray, he recommends oxygen administration with nonrebreather and admission. -ECG independently interpreted by me with normal sinus rhythm, rate of 90, normal axis, normal [place], normal QRS, normal QTc, no ST segment elevations consistent with STEMI criteria -Bloodwork is reviewed showing no significant leukocytosis, anemia, electrolyte or creatinine abnormality, negative troponin Differential diagnosis: Pneumothorax, ACS, PE, dissection Independent History obtained from: Boyfriend Diagnostics interpreted by me: ECG: See above Cardiac Monitoring: An order was placed for continuous cardiac monitoring. The monitor shows a rate of 82 with sinus rhythm. Past Med/Surg History Problem List (Updated 09/09/24 @ 00:19 by Elisa Lora MD) Recurrent pneumothorax Chronic arthralgias of knees and hips Endometriosis of thorax Endometriosis Encounter for other screening for malignant neoplasm of breast Bleeding Abnormal liver diagnostic imaging FH: sickle cell anemia Hx of pneumothorax prior surgery with dr del angel for pleura Anemia Leukopenia Positive ALEXA (antinuclear antibody) Family history of lupus Family history of rheumatoid arthritis History of anemia Screening for lipid disorders LGSIL on Pap smear of cervix Menorrhagia with regular cycle Vitamin D deficiency VAIN I (vaginal intraepithelial neoplasia grade I) Chest pain Nonproductive cough Pneumothorax on right (Acute) Bronchitis (Acute) Spontaneous pneumothorax (Acute) Surgical History History of thoracic surgery Family History Mother Lupus Other Allergies Cancer Diabetes Denies family history of Tuberculosis Ovarian cancer Prostate cancer Heart disease Myocardial infarction Breast cancer Emphysema, unspecified Colorectal cancer Lung disease Asthma Social History Smoking Status: Never smoker Second Hand Exposure: Yes; Do You Dip or Chew Tobacco: No; Hx Alcohol Use: No Hx Substance Use: No Preferred Language: Portuguese Visual Impairment: No Limitations Hearing Ability: Normal Customer Service Dispatcher Required: No marital status: Single Current Living Situation: Significant Other current occupational status: unemployed Feels Safe at Home: Yes Childhood Exposure to Second-Hand Smoke: No Dental Care, Regularly: Yes Physical Activity Frequency: 1-2 Times per Week Seatbelt Use: always Sunscreen Use: No Allergies Allergies Allergy/AdvReac Type Severity Reaction Status Date / Time metoclopramide AdvReac Intermediate CLAUSTROPHOBIC Verified 05/06/24 08:49 FEELING Home Meds Home Medications Medication Instructions Recorded Confirmed norethindrone acetate 5 mg tablet 5 mg PO DAILY 08/13/23 05/06/24 gabapentin 300 mg capsule 600 mg PO BID PRN Pain 01/29/24 05/06/24 cholecalciferol (vitamin D3) 125 125 mcg PO WK 02/05/24 05/06/24 mcg (5,000 unit) tablet (Vitamin D3) multivitamin 1 tab PO DAILY 02/05/24 05/06/24 Previous Rx's Medication Instructions Recorded nitrofurantoin 100 mg PO BID 5 days #10 caps 07/01/24 monohydrate/macrocrystals 100 mg capsule (Macrobid) Results & Data (ED) Vital Signs Vital Signs - 24 hr 09/08/24 21:56 09/08/24 22:08 09/08/24 22:26 Temperature 36.1 C L Temperature Source Temporal Artery Scan Pulse Rate 89 86 Pulse Rate [Apical] 84 Respiratory Rate 18 17 Respiratory Effort / Characteristics Non-Labored Spontaneous Respiratory Depth Normal Respiratory Pattern Regular Blood Pressure 140/81 Blood Pressure [Right Arm] 132/87 Blood Pressure Mean 100 Blood Pressure Mean [Right Arm] 102 Pulse Oximetry 99 100 Oxygen Delivery Method Room Air Room Air Sepsis Recent Fever Within 48 Hours No Sepsis New/Unexplained Change in Mental Status N/A Sepsis Action Taken by Nursing No Action Required 09/08/24 23:59 Temperature Temperature Source Pulse Rate Pulse Rate [Apical] 82 Respiratory Rate 21 Respiratory Effort / Characteristics Respiratory Depth Respiratory Pattern Blood Pressure Blood Pressure [Right Arm] 132/87 Blood Pressure Mean Blood Pressure Mean [Right Arm] 102 Pulse Oximetry 99 Oxygen Delivery Method Non-rebreather Sepsis Recent Fever Within 48 Hours Sepsis New/Unexplained Change in Mental Status Sepsis Action Taken by Nursing Laboratory Data 09/08/24 21:15 09/08/24 21:15 Lab Results 09/08/24 Range/Units 21:15 WBC 5.87 (4.8-10.8) K/ul RBC 4.05 L (4.20-5.40) M/uL Hgb 12.5 (12.0-16.0) g/dl Hct 37.5 (37.0-47.0) % MCV 92.6 (80.0-100.0) fL MCH 30.9 (25.0-34.0) pg MCHC 33.3 (32.0-36.0) g/dL RDW Std Deviation 43.9 (36.4-46.3) fL RDW Coeff of Piyush 12.8 (11.5-14.5) % Plt Count 289 (130-400) K/uL MPV 9.8 (9.4-12.4) fL Immature Gran % (Auto) 0.2 % Neut % (Auto) 48.4 % Lymph % (Auto) 45.0 % Loup % (Auto) 4.9 % Eos % (Auto) 1.0 % Baso % (Auto) 0.5 % Neut # (Auto) 2.84 (1.40-6.50) K/uL Lymph # (Auto) 2.64 (1.20-3.40) K/uL Loup # (Auto) 0.29 (0.11-0.59) K/uL Eos # (Auto) 0.06 (0.00-0.50) K/uL Baso # (Auto) 0.03 (0.00-0.20) K/uL Immature Gran # (Auto) 0.01 (0.01-0.20) K/uL Sodium 139 (136-145) mmol/L Potassium 3.8 (3.5-5.1) mmol/L Chloride 106 (98-107) mmol/L Carbon Dioxide 25 (21-32) mmol/L Anion Gap 8 (3-11) BUN 11 (6-23) mg/dl Creatinine 0.87 (0.6-1.2) mg/dl Est Cr Clr Drug Dosing 74.9 ml/min eGFR 84.20 BUN/Creatinine Ratio 12.6 (10-20) Glucose 87 (70-99(Fasting)) mg/dl Calcium 8.8 (8.6-10.3) mg/dl Total Bilirubin 0.8 (0.2-1.0) mg/dl AST 19 (13-39) U/L ALT 20 (7-52) U/L Alkaline Phosphatase 27 L (34-104) U/L Troponin I High Sens 3.8 (0-14) pg/ml Total Protein 7.7 (6.0-8.3) gm/dl Albumin 4.6 (3.4-5.0) gm/dl Globulin 3.1 (2.5-4.0) gm/dl Albumin/Globulin Ratio 1.5 (0.9-2) Lipase 61 (11-82) U/L Imaging Data Radiologist's Impression: Chest X-Ray 09/08/24 22:00 CR Exam(s): XR CXR 1 VIEW EXAM: XR Chest, 1 View CLINICAL HISTORY: Reason for exam: pneumothorax. TECHNIQUE: Frontal view of the chest. COMPARISON: 02/05/2024 FINDINGS: Lungs: Unremarkable. No consolidation. Pleural space: Moderate sized right pneumothorax measuring 4.3 cm. Heart: Unremarkable. No cardiomegaly. Mediastinum: Unremarkable. Normal mediastinal contour. Bones/joints: Unremarkable. No acute fracture. IMPRESSION: Moderate size right pneumothorax Communications: Call Doctor Pneumothorax Electronically signed by: Jordi Hyatt MD 09/08/24 23:54 PM Discharge Plan Visit Data Chief Complaint: Shortness of Breath/Dyspnea Stated Complaint: CHEST PAIN, SOB, BACK PAIN ED Provider: Elisa Lora Discharge Problem: Pneumothorax on right Forms Stand Alone Forms: [facility] [employer] Prescriptions Prescriptions: No Action nitrofurantoin monohyd/m-cryst [Macrobid] 100 mg capsule 100 mg PO BID 5 Days Qty: 10 0RF Rx Instructions: must administer with a meal/food norethindrone acetate 5 mg tablet 5 mg PO DAILY Rx Instructions[place] [facility] [place] gabapentin 300 mg capsule 600 mg PO BID PRN (Reason: Pain) Rx Instructions[place] [facility] [place] multivitamin Tablet 1 tab PO DAILY cholecalciferol (vitamin D3) [Vitamin D3] 125 mcg (5,000 unit) Tablet 125 mcg PO WK Referrals Referrals: Negro Briscoe MD [Primary Care Provider] -
--- NOTE | 2024-09-08 23:55 | XRay Report ---
Exam(s): XR CXR 1 VIEW EXAM: XR Chest, 1 View CLINICAL HISTORY: Reason for exam: pneumothorax. TECHNIQUE: Frontal view of the chest. COMPARISON: 02/05/2024 FINDINGS: Lungs: Unremarkable. No consolidation. Pleural space: Moderate sized right pneumothorax measuring 4.3 cm. Heart: Unremarkable. No cardiomegaly. Mediastinum: Unremarkable. Normal mediastinal contour. Bones/joints: Unremarkable. No acute fracture. IMPRESSION: Moderate size right pneumothorax Communications: Call Doctor Pneumothorax Electronically signed by: Jordi Hyatt MD 09/08/24 23:54 PM
--- NOTE | 2024-09-08 23:58 | History & Physical Report ---
"Date of Service September 08, 2024 Assessment & Plan (1) Endometriosis of thorax: (2) Hx of pneumothorax: (3) Recurrent pneumothorax: Plan R Pneumothorax | History of Endometriosis of Thorax, S/P VATS Procedure -Symptom onset two days prior with chest pressure/discomfort radiating to right scapula -Chest x-ray shows moderate sized right pneumothorax measuring 4.3 cm -ED provider discussed case with on-call bed laster, recommended oxygen administration with nonrebreather and admission -ED provider also spoke with [facility] (Dr. Nieves, cardiothoracic surgery) who did not feel transfer was necessary for management at this time -Patient endorses mild chest pressure but is more comfortable than prior to admission -Tylenol and IV Morphine PRN for pain control -Pulmonology consulted, appreciate recommendations Endometriosis -Continue norethindrone daily Admit to: PCU/tele VTE Prophylaxis: Defer while awaiting pulmonology eval Diet: NPO Code Status: Full Code History of Present Illness Primary Care Provider: Negro Briscoe MD Trinidad Caputo is a 44 year-old female with past medical history significant for endometriosis, endometriosis of the thorax, recurrent pneumothorax, prior thoracic surgery (previous VATS procedure in 2017). Patient presented to the ED due to ongoing symptoms of chest pressure/pain radiating to her right scapula, reported that these symptoms are were the same as her previous episodes of pneumothorax. Reports that her last episode of a pneumothorax occurred 2022. At present, patient endorses mild chest pressure but overall feeling more comfortable than on arrival. Denies changes in bowel or bladder habits. Denies recent changes in medications. Patient expresses that she is hesitant to undergo another chest tube but understands if it is necessary. Patient was placed on non-rebreather per pulmonology recommendation while in the ED. ED Course: -Chest XR -CBC, CMP Allergies Allergy/AdvReac Type Severity Reaction Status Date / Time metoclopramide AdvReac Intermediate CLAUSTROPHOBIC Verified 05/06/24 08:49 FEELING Home Medications Medication Instructions Recorded Confirmed Type norethindrone acetate 5 mg tablet 5 mg PO DAILY 08/13/23 05/06/24 History gabapentin 300 mg capsule 600 mg PO BID PRN Pain 01/29/24 05/06/24 History cholecalciferol (vitamin D3) 125 125 mcg PO WK 02/05/24 05/06/24 History mcg (5,000 unit) tablet (Vitamin D3) multivitamin 1 tab PO DAILY 02/05/24 05/06/24 History nitrofurantoin 100 mg PO BID 5 days #10 caps 07/01/24 Rx monohydrate/macrocrystals 100 mg capsule (Macrobid) Past Med/Surg History Problem List (Updated 09/09/24 @ 00:19 by Elisa Lora MD) Recurrent pneumothorax Chronic arthralgias of knees and hips Endometriosis of thorax Endometriosis Encounter for other screening for malignant neoplasm of breast Bleeding Abnormal liver diagnostic imaging FH: sickle cell anemia Hx of pneumothorax prior surgery with dr del angel for pleura Anemia Leukopenia Positive ALEXA (antinuclear antibody) Family history of lupus Family history of rheumatoid arthritis History of anemia Screening for lipid disorders LGSIL on Pap smear of cervix Menorrhagia with regular cycle Vitamin D deficiency VAIN I (vaginal intraepithelial neoplasia grade I) Chest pain Nonproductive cough Pneumothorax on right (Acute) Bronchitis (Acute) Spontaneous pneumothorax (Acute) Surgical History History of thoracic surgery Family History Mother Lupus Other Allergies Cancer Diabetes Denies family history of Tuberculosis Ovarian cancer Prostate cancer Heart disease Myocardial infarction Breast cancer Emphysema, unspecified Colorectal cancer Lung disease Asthma Social History Smoking Status: Never smoker Second Hand Exposure: Yes; Do You Dip or Chew Tobacco: No; Hx Alcohol Use: Yes Alcohol type: wine Hx Substance Use: No Preferred Language: Danish Communication Ability: Effective Visual Impairment: No Limitations Hearing Ability: Normal 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 Worker Required: No Beliefs That Will Affect Care: None marital status: Single Current Living Situation: Significant Other current occupational status: unemployed Other Information That Helps Us Care for You: No Feels Safe at Home: Yes Safety Concerns: Feels Safe At This Time Childhood Exposure to Second-Hand Smoke: No Dental Care, Regularly: Yes Physical Activity Frequency: 1-2 Times per Week Seatbelt Use: always Sunscreen Use: No Assistive Devices: None Review of Systems Review of Systems: As per above Physical Exam Constitutional: WD/WN, vitals as above Eyes: + anicteric sclerae; no conjunctival abn ormality ENMT: Ears: no external ear abnormality Nose: no external nose abnormality Respiratory: Left lung clear to auscultation, significantly decreased breath sounds at right lung Cardiovascular: Rate/Rhythm: regular rate and regular rhythm Gastrointestinal (Abdomen): Inspection/Auscultation: abdomen normal to inspection Percussion/Palpation: abdomen soft; abdomen nontender and no guarding Musculoskeletal: Moves all limbs independently Skin: no rashes, warm and dry Psychiatric: A+Ox3, euthymic affect Results & Data Results & Data Vital Signs (Past 12 Hours) Vital Signs Temp Pulse Pulse Resp BP BP Pulse Ox 09/08/24 22:26 84 17 132/87 100 09/08/24 22:08 86 09/08/24 21:56 36.1 C L 89 18 140/81 99 O2 Del Method 09/08/24 22:26 Room Air 09/08/24 22:08 09/08/24 21:56 Room Air Diagnostic Findings Chest X-Ray 09/08/24 22:00 CR Exam(s): XR CXR 1 VIEW EXAM: XR Chest, 1 View CLINICAL HISTORY: Reason for exam: pneumothorax. TECHNIQUE: Frontal view of the chest. COMPARISON: 02/05/2024 FINDINGS: Lungs: Unremarkable. No consolidation. Pleural space: Moderate sized right pneumothorax measuring 4.3 cm. Heart: Unremarkable. No cardiomegaly. Mediastinum: Unremarkable. Normal mediastinal contour. Bones/joints: Unremarkable. No acute fracture. IMPRESSION: Moderate size right pneumothorax Communications: Call Doctor Pneumothorax Electronically signed by: Jordi Hyatt MD 09/08/24 23:54 PM Supervising Physician Co-Signing Physician Notes Attending addendum: I have physically seen this patient, have supervised the medical residents activities, and agree with the H&P unless as otherwise noted. Assessment and Plan: Spontaneous right pneumothorax/history of endometriosis thorax/status post VATS procedure- Chest x-ray with moderate-sized right pneumothorax measuring 4.3 cm Conservative management to this point, as per recommended by on-call this consult via ED Dr. Nieves, cardiothoracic surgery at [facility], felt. Patient can be managed at [facility] at this point, unless acute changes develop Acetaminophen 600 mg by mouth every 6 hours as needed for mild pain or fever Morphine IV as noted for moderate to severe pain Patient reports that most recent episode of pneumothorax was around 2022 Denies any history of recent trauma or any other precipitating cause including signs of respiratory infection Resident Activity Tracking Resident Involvement: Resident Care Provided Care Provided: Adult Hospital Medicine"
[2024-09-09 00:49] VITALS: O2SAT 100
[2024-09-09] MEDS ORDERED: ACETAMINOPHEN 1,000 MG/100 ML VIAL IV PRN (02:38)
[2024-09-09] MEDS ORDERED: MoRPHine SULFATE 2 MG/ML CARP IV PRN (02:38)
[2024-09-09] MEDS ORDERED: ONDANSETRON INJ 2 MG/ML 2 ML VIAL IV PRN (02:38)
--- NOTE | 2024-09-09 05:27 | Billing Data ---
Date of Service September 09, 2024 Coding Level of Care Code 11844 INT INP/OBS CARE
[2024-09-09 06:54] LABS: Basophils # (auto) 0.03 K/uL (0.00-0.20); Basophils % (auto) 0.6 %; Eosinophils # (auto) 0.06 K/uL (0.00-0.50); Eosinophils % (auto) 1.3 %; Hematocrit (blood only) 35.4 % (37.0-47.0); Hemoglobin 11.7 g/dl (12.0-16.0); Immature Granulocytes # (auto) 0.01 K/uL (0.01-0.20); Immature Granulocytes % (auto) 0.2 %; Lymphocytes # (auto) 2.24 K/uL (1.20-3.40); Lymphocytes % (auto) 48.3 %; Mean Corpuscular Hemoglobin 30.7 pg (25.0-34.0); Mean Corpuscular Hgb Conc 33.1 g/dL (32.0-36.0); Mean Corpuscular Volume 92.9 fL (80.0-100.0); Mean Platelet Volume 10.2 fL (9.4-12.4); Monocytes # (auto) 0.29 K/uL (0.11-0.59); Monocytes % (auto) 6.3 %; Neutrophils # (auto) 2.01 K/uL (1.40-6.50); Neutrophils % (auto) 43.3 %; Platelet Count 276 K/uL (130-400); RDW Coefficient of Variation 12.9 % (11.5-14.5); Red Blood Count 3.81 M/uL (4.20-5.40); White Blood Count 4.64 K/ul (4.8-10.8)
[2024-09-09 07:04] LABS: Albumin Globulin Ratio 1.5 (0.9-2); Albumin Level 4.1 gm/dl (3.4-5.0); BUN Creatinine Ratio 14.1 (10-20); Bilirubin,Total 0.9 mg/dl (0.2-1.0); Calcium 8.7 mg/dl (8.6-10.3); Creatinine Clr Calc Pharmacy 85.9 ml/min; Globulin 2.7 gm/dl (2.5-4.0); Potassium 3.9 mmol/L (3.5-5.1); Total Protein 6.8 gm/dl (6.0-8.3)
[2024-09-09 08:18] VITALS: BP 108/71; RESP 20; TEMP 98.4
--- NOTE | 2024-09-09 09:38 | Pulmonary Consultation ---
Date of Consultation September 09, 2024 Assessment & Plan (1) Recurrent pneumothorax: (2) Endometriosis of thorax: (3) Chest pain: (4) Nonproductive cough: Plan -- Secondary spontaneous pneumothorax History of thoracic endometriosis, s/p VATS in 2016 and repeat VATS 2022 Following up with [place] -- Allergic rhinitis with postnasal drip Recommend iuci-[id number] antihistamine as well as Flonase --Endometriosis Taking hormonal therapy Following up with [facility] at [place] --History of lupus and rheumatoid arthritis in mother Plan: Patient's chest x-ray from today does not show any significant change compared to yesterday She has small apical and lateral pneumothorax. I do not think this warrants chest tube given that there is no worsening. Recommend antitussive medication [id number] like Mucinex-DM. Avoid activities which can increase intrathoracic pressure like sneezing with mouth close (patient does have a habit of doing this), avoid constipation. No flutter valve No flying for at least 3-4 weeks, no scuba diving All lifting anything heavy. Repeat chest x-ray on 09/11/2024 which is Saturday. Case discussed with primary team Please note the above document was generated using voice recognition software. It may contain grammatical, syntax or spelling errors.Any formal questions or concerns about the content, text or information contained within the body of this dictation should be directly addressed to the provider for clarification. History of Present Illness Attending Physician: Modesto Fields MD History of Present Illness 44-year-old female present to the hospital with complaints of chest pain was found to have right-sided pneumothorax Past medical history: Endometriosis with endometriosis of the thorax Pulmonary consulted for the same At the time of examination patient was saturating 99% on nonrebreather She was not in any respiratory distress She stated that the pain on the right side has decreased in intensity She still complaining of cough and some postnasal drip. She stated that she has been having some issues since Saturday when she started to have cough. This was followed by some chest pain yesterday that is how she ended up in the ER She has a very complex history of multiple spontaneous pneumothoraces on the right side. 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 No personal or family history of asthma Allergies Allergy/AdvReac Type Severity Reaction Status Date / Time metoclopramide AdvReac Intermediate CLAUSTROPHOBIC Verified 05/06/24 08:49 FEELING Home Medications Medication Instructions Recorded Confirmed Type norethindrone acetate 5 mg tablet 5 mg PO DAILY 08/13/23 05/06/24 History gabapentin 300 mg capsule 600 mg PO BID PRN Pain 01/29/24 05/06/24 History cholecalciferol (vitamin D3) 125 125 mcg PO WK 02/05/24 05/06/24 History mcg (5,000 unit) tablet (Vitamin D3) multivitamin 1 tab PO DAILY 02/05/24 05/06/24 History nitrofurantoin 100 mg PO BID 5 days #10 caps 07/01/24 Rx monohydrate/macrocrystals 100 mg capsule (Macrobid) Patient History Surgical History History of thoracic surgery Family History Mother Lupus Other Allergies Cancer Diabetes Denies family history of Tuberculosis Ovarian cancer Prostate cancer Heart disease Myocardial infarction Breast cancer Emphysema, unspecified Colorectal cancer Lung disease Asthma Social History Smoking Status: Never smoker Second Hand Exposure: Yes; Do You Dip or Chew Tobacco: No; Hx Alcohol Use: Yes Alcohol type: wine Hx Substance Use: No Preferred Language: Slovak Communication Ability: Effective Visual Impairment: No Limitations Hearing Ability: Normal Mutuel Teller Required: No Beliefs That Will Affect Care: None marital status: Single Current Living Situation: Significant Other current occupational status: unemployed Other Information That Helps Us Care for You: No Feels Safe at Home: Yes Safety Concerns: Feels Safe At This Time Childhood Exposure to Second-Hand Smoke: No Dental Care, Regularly: Yes Physical Activity Frequency: 1-2 Times per Week Seatbelt Use: always Sunscreen Use: No Assistive Devices: None Review of Systems 2 Review of Systems: All systems reviewed & are unremarkable except as noted in HPI & below Physical Exam 2 Physical Exam: Constitutional: No acute distress HEENT: EOMI, PERRLA, no subcu emphysema Respiratory system: Decreased air entry on the right side, no wheeze, no rhonchi, no crackles CVS: S1-S2 positive, no murmurs or gallops Abdomen: Soft, nontender, nondistended, positive bowel sounds x4 Extremities: +2 pulses bilaterally radialis/ dorsalis pedis, no cyanosis, no edema Neuro: Awake alert oriented x3 Psych: Normal mood and affect G/U: No Mcbride Skin: no rashes, warm and dry Lymphatic: no cervical or axillary lymphadenopathy Results & Data Results & Data Vital Signs (Past 12 Hours) Vital Signs Temp Pulse Pulse Resp BP BP Pulse Ox 09/09/24 08:27 09/09/24 08:16 36.9 C 70 20 108/71 100 09/09/24 02:46 09/09/24 02:38 09/09/24 02:20 36.8 C 68 18 124/80 100 09/09/24 02:04 74 19 116/83 100 09/09/24 00:47 73 20 119/88 100 09/08/24 23:59 82 21 132/87 99 09/08/24 22:26 84 17 132/87 100 09/08/24 22:08 86 09/08/24 21:56 36.1 C L 89 18 140/81 99 Pulse Ox O2 Del Method O2 Del Method O2 Flow Rate O2 Flow Rate 09/09/24 08:27 Non-rebreather 15 09/09/24 08:16 Non-rebreather 15 09/09/24 02:46 Non-rebreather 15 09/09/24 02:38 100 Non-rebreather 15 09/09/24 02:20 Non-rebreather 15 09/09/24 02:04 Non-rebreather 15 09/09/24 00:47 Non-rebreather 15 09/08/24 23:59 Non-rebreather 09/08/24 22:26 Room Air 09/08/24 22:08 09/08/24 21:56 Room Air Laboratory Results 09/09/24 06:10 09/09/24 06:10 PG Care Time/CCT Total # of Minutes Spent Total Time Spent with Patient: Total time spent is greater than 50% in coordination of care (as documented) at patient's floor/unit and/or counseling patient: Coding Level of Care Code 54133 INT INP/OBS CARE MIN Diagnoses Recurrent pneumothorax J93.9 Endometriosis of thorax N80.B6 Chest pain R07.9 Nonproductive cough R05
--- NOTE | 2024-09-09 09:58 | XRay Report ---
EXAM: Radiograph of the Chest 1 View INDICATION: Follow-up. TECHNIQUE: Frontal view of the chest. Image obtained at 9:37 AM. COMPARISON: 02/05/2024 FINDINGS: Lungs and pleural spaces: There is a small right apical and lateral pneumothorax measuring approximately 1 cm greatest thickness at the base. There is mild parenchymal scarring in the right lung base. Postoperative changes right lung with apical staple lines. Stable circular collection of small clips or juliet projecting over the right diaphragm. No layering pleural effusion identified. Heart: Shape and configuration within normal limits allowing for technique. Mediastinum: Normal contour. Bones/joints: No fracture, erosion or dislocation. Upper abdomen: No abnormality noted. IMPRESSION: 1. Small right apical and lateral pneumothorax. 2. Mild atelectasis right lung base. ACT 112: Negative or not required by law. Electronically signed by Rand Correia 09-09-2024 09:57 AM
--- NOTE | 2024-09-09 11:16 | Discharge Summary ---
"Date of Service September 09, 2024 Admission HPI Per Admitting Provider Trinidad Caputo is a 44 year-old female with past medical history significant for endometriosis, endometriosis of the thorax, recurrent pneumothorax, prior thoracic surgery (previous VATS procedure in 2017). Patient presented to the ED due to ongoing symptoms of chest pressure/pain radiating to her right scapula, reported that these symptoms are were the same as her previous episodes of pneumothorax. Reports that her last episode of a pneumothorax occurred 2022. At present, patient endorses mild chest pressure but overall feeling more comfortable than on arrival. Denies changes in bowel or bladder habits. Denies recent changes in medications. Patient expresses that she is hesitant to undergo another chest tube but understands if it is necessary. Patient was placed on non-rebreather per pulmonology recommendation while in the ED. ED Course: -Chest XR -CBC, CMP Admission Exam Per Admitting Provider Constitutional: WD/WN, vitals as above Eyes: + anicteric sclerae; no conjunctival abn ormality ENMT: Ears: no external ear abnormality Nose: no external nose abnormality Respiratory: Left lung clear to auscultation, significantly decreased breath sounds at right lung Cardiovascular: Rate/Rhythm: regular rate and regular rhythm Gastrointestinal (Abdomen): Inspection/Auscultation: abdomen normal to inspection Percussion/Palpation: abdomen soft; abdomen nontender and no guarding Musculoskeletal: Moves all limbs independently Skin: no rashes, warm and dry Psychiatric: A+Ox3, euthymic affect Principal Diagnosis Pneumothorax Discharge Exam General: AAOx3, afebrile, NAD CV: RRR, no r/m/g Pulm: Decreased air sounds on right side, no wheezing, normal respiratory effort, no respiratory distress GI: mild tenderness to palpation of RUQ Extremities: no swelling or calf tenderness Discharge Data Allergies Allergy/AdvReac Type Severity Reaction Status Date / Time metoclopramide AdvReac Intermediate CLAUSTROPHOBIC Verified 05/06/24 08:49 FEELING Consultations 09/08/24 23:40 ED Decision to Admit Stat 09/09/24 02:38 Consult Pulmonology Routine Hospital Course (1) Endometriosis of thorax: (2) Hx of pneumothorax: (3) Recurrent pneumothorax: Plan R Pneumothorax | History of Endometriosis of Thorax, S/P VATS Procedure -Chest x-ray shows moderate sized right pneumothorax measuring 4.3 cm -Repeat CXR in am showing stable/slightly improving (R) PTX -Pulmonology consulted No need for chest tube as PTX has not worsened since last imaging study Avoid flying for 3-4 weeks, scuba diving, sneezing with mouth closed, or lifting heavy things Can discharge today with repeat CXR on 09/11/24 as well as cough syrup, Mucinex DM, Antihistamines, and Flonase Endometriosis -Continue norethindrone daily Will discharge back home today. Total Time Total Time Spent Total Time Spent (In Minutes): . Discharge Plan Discharge Items Patient Disposition: Home - Self-Care Reason For Visit: PNEUMONTHORAX Discharge Diagnosis: Pneumothorax Activity: Per Instructions section Non-emergency contact: Primary Care Provider Call non-emergency contact if: your symptoms worsen and your temperature is above 101 Follow-up/Referrals: Negro Briscoe MD [Primary Care Provider] - Diet: Regular Ambulatory Orders: XR chest 2V PA/lateral (Routine) Timeframe: [id number] Location: Determined by Patient Ordered By: Corie Suarez Attending Provider Instructions: You were admitted due chest tightness that was found to be related to pneumothorax (air leaks into the space around your lung, causing it to collapse and making it harder to breathe). We did not put a chest tube or do other interventions save for giving you oxygen and pain medications. The credit risk review officer saw you and, when noting that your pneumothorax did get better in the repeat chest x ray this morning, deemed that a chest tube would not be recommended. Therefore, given your symptoms have improved, we will be discharging you today. We have sent a script for a cough medication to help with preventing excessive coughing. This medication could make you sleepy/drowsy, therefore, we recommend you avoid driving when taking it. You can take Mucinex-DM as well. We also recommend you use over the counter antihistamines like Zyrtec as well as Flonase nasal spray at least two times every day. We have placed an order for a repeat chest x ray to be done this Saturday (09/11/24) to assess the progression of your pneumothorax. For the next 3-4 weeks, you should avoid flying, scuba diving, and limit lifting heavy objects. A discharge summary will be sent to your primary care physician to ensure continuity of care. Please bring this discharge summary with you to your next office appointment so that your provider can review it at that time. CONTACT YOUR PRIMARY CARE PROVIDER if you experience any of the following: Worsening of symptoms Fever, chills, or fatigue Difficulty following your treatment plan, or difficulty taking medications CALL 911 OR GO TO THE EMERGENCY DEPARTMENT if you experience any of the following: Sudden, severe abdominal pain or nausea/vomiting Severe chest pain, or chest pain that radiates (moves) to your jaw or arm Sudden, severe shortness of breath or difficulty breathing Thank you for allowing us to participate in your care. Pending Studies at Discharge: No Stand-Alone Forms: [facility], Smoking Cessation Medications and DC Order Prescriptions: Continued nitrofurantoin monohyd/m-cryst [Macrobid] 100 mg capsule 100 mg PO BID 5 Days Qty: 10 0RF Rx Instructions: must administer with a meal/food norethindrone acetate 5 mg tablet 5 mg PO DAILY Rx Instructions: [place] [facility] [place] 08[place]07[place]23 gabapentin 300 mg capsule 600 mg PO BID PRN (Reason: Pain) Rx Instructions: DC from [facility] on 08/07/23 multivitamin Tablet 1 tab PO DAILY cholecalciferol (vitamin D3) [Vitamin D3] 125 mcg (5,000 unit) Tablet 125 mcg PO WK Discharge Orders: Discharge Order (Routine); Ordered 09/09/24 Ordered By: Corie Calderon Admission Data Admit Date/Time: 09/09/24 00:52 Attending Provider: Modesto Fields Admit Provider: Tory Mcginnis Primary Care Provider: Negro Briscoe Other Providers: Zhen Escamilla Muqueet Other Interventions: Discharge Summary Assessment (RN) Last Done: 09/09/24 13:29 Supervising Physician Co-Signing Physician Notes Attending attestation Pt seen and examined in concert with Dr. Kvng Miranda. In agreement with the documented findings as noted in the resident documentation with any exceptions or additions as noted here. Resting comfortably in bed with gradually improving. On examination, S1/S2 nl RRR no MCG. CTAB. Abd NT/ND BS+ve Right pneumothorax in the setting of h/o endometriosis s/p VATS - Pulmonology consult - improving symptoms with reduction in pneumothorax on CXR. Else see resident documentation as noted. Total attending physician time spent with this patient's care on the day of discharge: 35 minutes. Resident Activity Tracking Resident Involvement: Resident Care Provided Care Provided: Adult [facility] Medicine"
[2024-09-09] MEDS: NORETHINDRONE 5 MG TAB PO SCH (11:36)
--- NOTE | 2024-09-09 11:57 | Electrocardiogram Report ---
Test Reason : Blood Pressure : */* mmHG Vent. Rate : 90 BPM Atrial Rate : 90 BPM P-R Int : 162 ms QRS Dur : 62 ms QT Int : 370 ms P-R-T Axes : 77 46 37 degrees QTcB Int : 452 ms Normal sinus rhythm with sinus arrhythmia Normal ECG When compared with ECG of 05-Feb-2024 01:02, No significant change was found Confirmed by Toy Packer ([id number]) on 09/09/2024 11:56:51 AM Referred By: REFERRED SELF Confirmed By: Toy Packer
[2024-09-09 13:30] VITALS: PULSE 70
[2024-09-09] MEDS ORDERED: guaiFENesin/CODEINE 100MG/10MG 5ML UDC PO PRN ×2 (13:31→16:31)
[2024-09-09] MEDS ORDERED: guaiFENesin/CODEINE 100MG/10MG 5ML UDC PO SCH ×2 (16:26→16:32)
--- NOTE | 2024-09-10 16:17 | Pharmacy Report ---
ED Pharmacist Progress Note - ED Pharmacist Progress Note Date of Service:: September 10, 2024 Notes:: Received call from Ethel Cardona, patient looking for RX. Reviewed discharge summary, initially did not see mention of RX. After hanging up noticed line that said "a script was sent for a cough medication to help with preventing excessive cough". Did call Ethel back and let them know I would contact physician to see if they would like to prescribe a cough medication since none was transmitted. Messaged Dr. Calderon- she stated she would send one.
== END 2024-09-09 17:38 | disposition home or self-care (01) | DRG 761 ==
LOC: ED 21:53 → SUATTDRO 09-09 00:52 → 2E 09-09 00:52 → INTOOBSV 09-09 00:52 → 2E 09-09 02:04